=== PATIENT | female | born 1990 | race Two or more races ===

== ENCOUNTER 2023-03-23 13:18 | Emergency (ER) | payer MEDICAID ==
[~2023-03-23] VITALS: Ht 170.2 cm; Wt 138.7 kg
[2023-03-23 14:13] LABS: Basophils # (auto) 0 10 ^3/uL (0-0.2); Basophils % (auto) 0.2 % (0.0-2.0); Eosinophils # (auto) 0.2 10 ^3/uL (0-0.8); Eosinophils % (auto) 1.5 % (0.0-7.0); Hematocrit 39.9 % (36.0-46.0); Hemoglobin 12.9 g/dL (12.2-16.2); Lymphocytes # (auto) 1.6 10 ^3/uL (0.4-5.4); Lymphocytes % (auto) 11.4 % (10.0-50.0); Mean Corpuscular Hemoglobin 25.6 pg (28.0-32.0); Mean Corpuscular Hgb Conc. 32.3 g/dL (32.0-36.0); Mean Corpuscular Volume 79.2 fL (80.0-100.0); Monocytes # (auto) 0.5 10 ^3/uL (0-1.3); Monocytes % (auto) 3.7 % (0.0-12.0); Neutrophils # (auto) 11.4 10 ^3/uL (1.6-8.6); Neutrophils % (auto) 83.2 % (37.0-80.0); Nucleated Red Blood Cells % 1.8 %; Red Blood Cells 5.04 10^6/uL (4.0-5.20); Red Cell Distribution Width 15.8 % (11.8-14.3); White Blood Cell 13.8 10^3/uL (4.4-10.8)
[2023-03-23] MEDS ORDERED: SODIUM CHLORIDE 0.9% 1,000 ML IVB ONE (14:15)
[2023-03-23] MEDS ORDERED: ACETAMINOPHEN 325 MG TAB PO ONE (14:15)
[2023-03-23 14:32] LABS: Alanine Aminotransferase 25 U/L (7-40); Albumin 4.2 g/dL (3.2-4.8); Alkaline Phosphatase 68 U/L (46-116); Anion Gap 9 (5-15); Aspartate Aminotransferase 9 U/L (13-40); BUN/Creatinine Ratio 14.7 (10.0-20.0); Bilirubin, Total 0.5 mg/dL (0.2-1.0); Blood Urea Nitrogen 10 mg/dL (9-23); Calcium 9.2 mg/dL (8.5-10.1); Carbon Dioxide 23 mmol/L (20-30); Chloride 105 mmol/L (98-107); Glucose 149 mg/dL (74-106); Potassium 3.6 mmol/L (3.5-5.1); Sodium 137 mmol/L (136-145); Total Protein 6.6 g/dL (5.7-8.2)
[2023-03-23 14:56] LABS: INR 1.02 (0.9-1.15); Partial Thromboplastin Time 26.3 SEC (24.5-34.5); Prothrombin Time 10.7 sec (9.3-11.8)
[2023-03-23 15:27] LABS: Urine Bacteria FEW /hpf (None Seen); Urine Blood Negative /uL (Negative); Urine Clarity HAZY (Clear); Urine Color Yellow (Yellow); Urine Mucus FEW (None Seen); Urine Protein, UAD 1+ (Negative); Urine Specific Gravity 1.027 (1.001-1.035); Urine WBC 6 /hpf (0 - 5)
[2023-03-23 18:42] VITALS: BP 138/82; PULSE 96; RESP 18; TEMP 98; O2SAT 96
== END 2023-03-23 18:51 | disposition home or self-care (01) ==
LOC: ER 13:18
DX: O24.419 Gestational diabetes mellitus in pregnancy, unspecified control (principal); R10.2 Pelvic and perineal pain; O26.892 Other specified pregnancy related conditions, second trimester; R55 Syncope and collapse; R10.9 Unspecified abdominal pain; R42 Dizziness and giddiness; R53.1 Weakness; I10 Essential (primary) hypertension; Z3A.19 19 weeks gestation of pregnancy
CPT/HCPCS: 36415; 76805; 80053; 81001; 83735; 83880; 84443; 84484; 84702; 85025; 85379; 85610; 85730; 86850; 86900; 86901; 93970; 96360; 99284; J7030

== ENCOUNTER 2023-07-12 23:30 | Observation (INO) | payer MEDICAID ==
[~2023-07-12] VITALS: Ht 170.2 cm; Wt 141.1 kg
[2023-07-13] MEDS ORDERED: INSLANTI SC (00:06)
[2023-07-13] MEDS ORDERED: LABE300T3 PO (00:06)
== END 2023-07-13 02:02 | disposition home or self-care (01) ==
LOC: LDRP 23:30
PROVIDERS: ADMIT Obstetrics & Gynecology; ATTEND Obstetrics & Gynecology
DX: O24.419 Gestational diabetes mellitus in pregnancy, unspecified control (principal); O16.3 Unspecified maternal hypertension, third trimester; Z3A.35 35 weeks gestation of pregnancy
CPT/HCPCS: 76818; 81002; 82962; G0378; 59025; 82948; 94760